=== PATIENT | female | born 1990 | race Caucasian/White ===

== ENCOUNTER 2022-08-20 15:06 | Outpatient (REF) | payer MEDICAID, SELFPAY ==
--- NOTE | 2022-08-20 14:15 | PAPFT_PTH ---
PATIENT: Naomi Garcia LOC: [facility] U#:[id number] AGE/SX: 32/F ROOM: RE08/20/[address]: Althea Back : 1990 BED: DIS: 08/20/2022 SPEC #: [id number] RECD: 08/21/22 13:07 STATUS: GIFTY REAicha #: [id number] MELVA: 08/20/22 14:[address]: Althea Back DEPT: [facility] Cytology RECD BY: Lalitha Cannon Tissues: 1 - CX/ENDOCX FOR PAP SMEARS Procedures: PAP THIN PREP/[facility] Screening HPV DNA PROBE Comments: [id number]
== END 2022-08-20 15:07 | disposition home or self-care (01) ==
LOC: NCHCN 15:06
PROVIDERS: PCP Family Medicine; Visit Provider Family Medicine
DX: Z12.4 Encounter for screening for malignant neoplasm of cervix (principal); Z11.51 Encounter for screening for human papillomavirus (HPV)
CPT/HCPCS: 88142; 87624

== ENCOUNTER 2023-08-05 14:51 | Outpatient (REF) | payer MEDICAID, SELFPAY | END 2023-08-05 14:52 | disposition home or self-care (01) | LOC: NCHCN 14:51 | PROVIDERS: PCP Family Medicine; Visit Provider Family Medicine | DX: J02.9 Acute pharyngitis, unspecified (principal) | CPT/HCPCS: 87070 ==